=== PATIENT | female | born 1960 | race Caucasian/White ===

== ENCOUNTER 2018-04-09 07:01 | Emergency (ER) | payer BC ==
[2018-04-09 07:21] VITALS: BP 123/85
--- NOTE | 2018-04-09 07:31 | UC ---
Eye Complaint HPI - HPI Summary HPI Summary: right eye redness x 2 days + yellow / clear discharge, no eye pain , no change in vision , no photophobia - History of Current Complaint Chief Complaint: UCEye Stated Complaint: RIGHT EYE CONCERN Time Seen by Provider: 04/09/18 07:08 Hx Obtained From: Patient Hx Last Menstrual Period: 04/17/13 Onset/Duration: Gradual Onset, Lasting Days - 2, Still Present Timing: Constant Severity Initially: Moderate Severity Currently: Moderate Pain Intensity: 0 Location of Injury: Conjunctiva - right eye Aggravating Factor(s): Nothing Alleviating Factor(s): Nothing Associated Signs And Symptoms: Positive: Drainage (Clear) - right eye, Drainage (Purulent) - right eye. Negative: Photophobia, Vision Impairment Bilateral, Vision Impairment Right, Vision Impairment Left, Fever, Swelling - Allergies/Home Medications Allergies/Adverse Reactions: Allergies Allergy/AdvReac Type Severity Reaction Status Date / Time No Known Allergies Allergy Verified 04/09/18 07:18 PMH/Surg Hx/FS Hx/Imm Hx Previously Healthy: Yes - Surgical History Surgical History: Yes Surgery Procedure, Year, and Place: Appendectomy, ~1965, [place] - Family History Known Family History: Positive: None Negative: Diabetes - Social History Alcohol Use: Occasionally Substance Use Type: None Smoking Status (MU): Never Smoked Tobacco - Immunization History Most Recent Influenza Vaccination: 2012 Review of Systems All Other Systems Reviewed And Are Negative: Yes Constitutional: Positive: Negative Skin: Positive: Negative Eyes: Positive: Drainage, Eye Redness ENT: Positive: Negative Respiratory: Positive: Negative Is Patient Immunocompromised?: No Physical Exam Triage Information Reviewed: Yes Appearance: Well-Appearing, No Pain Distress, Well-Nourished Vital Signs: Initial Vital Signs Temp 98.3 F 04/09/18 07:16 Pulse 69 04/09/18 07:16 Resp 15 04/09/18 07:16 BP 123/85 04/09/18 07:16 Pulse Ox 100 04/09/18 07:16 Vital Signs Reviewed: Yes Eye Exam: Normal Eyes: Positive: Conjunctiva Inflamed - right eye, Discharge - clear discharge right eye ENT: Positive: Normal ENT inspection, Hearing grossly normal, Pharynx normal Neck: Positive: Supple, Nontender, No Lymphadenopathy Respiratory: Positive: Chest non-tender, Lungs clear, Normal breath sounds Cardiovascular: Positive: RRR, No Murmur, Pulses Normal Skin Exam: Normal Eye Complaint Course/Dx - Differential Dx/Diagnosis Provider Diagnosis: Conjunctivitis, right eye Discharge - Sign-Out/Discharge Documenting (check all that apply): Patient Departure All imaging exams completed and their final reports reviewed: No Studies - Discharge Plan Condition: Stable Disposition: HOME Prescriptions: Tobramycin 0.3% OPHTH.LAURE* 1 drop RIGHT EYE Q4H #1 btl Patient Education Materials: Conjunctivitis (ED) Referrals: Nery Hardin MD [Primary Care Provider] - If Needed - Billing Disposition and Condition Condition: STABLE Disposition: Home
== END 2018-04-09 07:39 | disposition home or self-care (01) ==
LOC: UCCORT 07:01
DX: H10.9 Unspecified conjunctivitis (principal)
CPT/HCPCS: 99212; G0463

== ENCOUNTER 2018-06-30 07:44 | Emergency (ER) | payer BC ==
[2018-06-30 08:13] VITALS: BP 132/83
--- NOTE | 2018-06-30 08:24 | UC ---
Skin Complaint HPI - HPI Summary HPI Summary: 57-year-old woman comes in with a chief complaint of a rash. It's on her face. It's just below her right lip. She's tried putting alcohol on it and also topical steroid and is not helping. It does drain some clear fluid at times. No crusting. Feels well otherwise. It reminds her when she had impetigo before. - History of Current Complaint Chief Complaint: UCSkin Time Seen by Provider: 06/30/18 08:14 Stated Complaint: SKIN COMPLAINT Hx Last Menstrual Period: 04/17/13 Pain Intensity: 0 - Allergy/Home Medications Allergies/Adverse Reactions: Allergies Allergy/AdvReac Type Severity Reaction Status Date / Time No Known Allergies Allergy Verified 06/30/18 08:09 PMH/Surg Hx/FS Hx/Imm Hx Previously Healthy: Yes - Surgical History Surgical History: Yes Surgery Procedure, Year, and Place: Appendectomy, ~1965, [place] - Family History Known Family History: Positive: None Negative: Diabetes - Social History Alcohol Use: Occasionally Substance Use Type: None Smoking Status (MU): Never Smoked Tobacco - Immunization History Most Recent Influenza Vaccination: 2013 Review of Systems All Other Systems Reviewed And Are Negative: Yes Constitutional: Positive: Negative Skin: Positive: Other - SEE HPI Eyes: Positive: Negative ENT: Positive: Negative Respiratory: Positive: Negative Cardiovascular: Positive: Negative Gastrointestinal: Positive: Negative Motor: Positive: Negative Neurovascular: Positive: Negative Musculoskeletal: Positive: Negative Neurological: Positive: Negative Psychological: Positive: Negative Is Patient Immunocompromised?: No Physical Exam Triage Information Reviewed: Yes Appearance: Well-Appearing, No Pain Distress, Well-Nourished Vital Signs: Initial Vital Signs Temp 97.8 F 06/30/18 08:07 Pulse 66 06/30/18 08:07 Resp 18 06/30/18 08:07 BP 132/83 06/30/18 08:07 Pulse Ox 100 06/30/18 08:07 Vital Signs Reviewed: Yes Eye Exam: Normal ENT: Positive: Pharynx normal. Negative: Nasal drainage Neck exam: Normal Neck: Positive: Supple Respiratory: Positive: No respiratory distress Musculoskeletal Exam: Normal Musculoskeletal: Positive: Strength Intact, ROM Intact Neurological Exam: Normal Neurological: Positive: Alert, Muscle Tone Normal Psychological Exam: Normal Psychological: Positive: Age Appropriate Behavior Skin: Positive: Other - BELOW THE RIGHT LIP; 2CM DIAMETER ERYTHEMATOUS BASE WITH OCCATIONAL PUSTULE AND CLEAR FLUID DRAINAGE. NO RASH ON CHEEK OR ELSEWHERE Course/Dx - Course Course Of Treatment: The rash is most probably impetigo. We will treat with mupirocin. Due to the location also a possibility of Tamiko and therefore we' ll treat with Chlortrimazole also. Follow-up with primary care physician reevaluate sooner if worse or any questions or concerns. - Diagnoses Provider Diagnosis: Rash, Angular cheilitis Discharge - Sign-Out/Discharge Documenting (check all that apply): Patient Departure All imaging exams completed and their final reports reviewed: No Studies - Discharge Plan Condition: Stable Disposition: HOME Prescriptions: Clotrimazole 1 applic TOPICAL BID #28.4 gm Mupirocin 1 applic TOPICAL TID #22 gm Patient Education Materials: Impetigo (ED), Acute Rash (ED), Skin Yeast Infection (ED) Forms: *Work Release Referrals: Nery Hardin MD [Primary Care Provider] - Additional Instructions: FOLLOW UP WITH YOUR DOCTOR IF NOT COMPLETELY IMPROVED. GET RECHECKED FOR ANY WORSENING OF YOUR CONDITION OR QUESTIONS OR CONCERNS. - Billing Disposition and Condition Condition: STABLE Disposition: Home
== END 2018-06-30 08:31 | disposition home or self-care (01) ==
LOC: UCCORT 07:44
DX: R21 Rash and other nonspecific skin eruption (principal); K13.0 Diseases of lips
CPT/HCPCS: 99212; G0463